=== PATIENT | female | born 1955 | race Caucasian/White ===

== ENCOUNTER 2017-01-25 14:10 | Emergency (ER) ==
[2017-01-25 14:23] VITALS: BP 175/96
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
--- NOTE | 2017-01-25 17:58 | Diag Imaging Result Document ---
PROCEDURE NAME: RIBS UNILAT W/PA CHEST LEFT - 01/25/2017 FRONTAL CHEST X-RAY AND 2 VIEWS OF THE LEFT-SIDED RIBS: COMPARISON: 12/14/2016. FINDINGS: Stable borderline heart size. The lungs are clear of infiltrate. No pneumothorax or pleural effusion. The left-sided ribs are intact. IMPRESSION: No acute disease or change from prior. Job#:
== END 2017-01-25 16:36 | disposition home or self-care (01) ==
LOC: ED 14:10
DX: R07.81 Pleurodynia (principal); S01.511A Laceration without foreign body of lip, initial encounter; R07.9 Chest pain, unspecified; I10 Essential (primary) hypertension; Y08.89XA Assault by other specified means, initial encounter; Z79.899 Other long term (current) drug therapy
CPT/HCPCS: 71101

== ENCOUNTER 2020-01-01 15:08 | Observation (INO) ==
[2020-01-01 15:58] LABS: BASO# 0.03 X1000 (0.0-0.2); BASO% 0.1 % (0.0-0.8); EOS% 0.5 % (0.0-10.0); HEMATOCRIT 39.4 % (37.0-47.0); HEMOGLOBIN 12.3 g/dL (12.0-16.0); IMM GRAN# 0.05 X1000 (0.0-0.04); IMM GRAN% 0.2 % (0.0-0.5); LYMPH# 1.98 X1000 (1.2-3.4); LYMPH% 9.4 % (20.5-51.1); MCH 27.4 PG (27-31); MCHC 31.2 g/dL (33-37); MCV 87.8 FL (81-99); MONO# 1.01 X1000 (0.11-0.59); MONO% 4.8 % (1.7-9.3); MPV 9.8 FL (7.4-10.4); NEUT# 17.99 X1000 (1.4-6.5); PLT 215 X1000 (130-400); RBC 4.49 XMIL (4.2-5.4); RDW 15.9 % (11.5-14.5); WBC 21.16 X1000 (4.8-10.8)
[2020-01-01 16:05] LABS: INR 1.11; PROTIME 14.4 Seconds (11.0-16.0)
[2020-01-01 16:14] LABS: ALB/GLOB RATIO 1.4; ALBUMIN 4.1 g/dL (3.5-5.0); POTASSIUM 3.4 mmol/L (3.5-5.1); TOTAL BILIRUBIN 0.69 mg/dL (0.20-1.00)
--- NOTE | 2020-01-01 16:19 | PROVIDER DOCUMENTATION ---
HPI-General Adult - General Chief Complaint: Shortness of Breath Stated Complaint: SOB Time Seen by Provider: 01/01/20 16:18 Source: patient Allergies/Adverse Reactions: Patient Allergies Allergy/AdvReac Type Severity Reaction Status Date / Time No Known Allergies Allergy Verified 04/18/17 13:27 Home Medications: Home Medication List Medication Instructions Recorded Confirmed Last Taken Type Alprazolam [Xanax] 1 mg PO TID PRN PRN 01/20/16 01/01/20 01/01/20 11:00 History Zolpidem [Ambien] 10 mg PO HS 01/20/16 01/01/20 1 Day Ago History ~07/11/19 10mg Gabapentin 800 mg PO TID 01/25/17 01/01/20 01/01/20 11:00 History Lisinopril 20 mg PO DAILY 04/18/17 01/01/20 01/01/20 11:00 History Ondansetron [Zofran] 4 mg PO Q6H PRN PRN #20 tablet 04/18/17 01/01/20 1 Day Ago Rx ~07/11/19 4mg - History of Present Illness -Gen Adult Nature of Presenting Problems: 64 year old female pmh significant for wheezing over the past week that has been progressively worsening and is a/w FOLEY and orthopnea, but no diaphoresis, nausea, vomiting, or lightheadedness. Review of Systems - Adult - REVIEW OF SYSTEMS - ADULT Constitutional: reports: reshma. denies: chills, fever Eyes: denies: decreased vision, blurred vision, double vision Ears, Nose, Mouth & Throat: reports: no symptoms reported Cardiovascular: reports: orthopnea, PND Respiratory: reports: cough, dyspnea on exertion, shortness of breath, wheezing Gastrointestinal: reports: no symptoms reported Genitourinary: reports: no symptoms reported Musculoskeletal: reports: no symptoms reported Integumentary: reports: no symptoms reported Neurological: reports: no symptoms reported Psychiatric: reports: no symptoms reported Endocrine: reports: no symptoms reported Hematologic/Lymphatic: reports: no symptoms reported Allergic/Immunologic: reports: no symptoms reported All Other Systems: Reviewed and Negative Past History - Adult - PAST MEDICAL HISTORY-ADULT Review of Records: reports: Old Records Reviewed, Nursing Assessment Review, Medications Reviewed, Social history reviewed & non-contributory. Cardiovascular: reports: HTN Psychiatric: reports: anxiety - PRIOR SURGERIES/PROCEDURES Surgical/Procedure History: reports: cholecystectomy - IMMUNIZATION STATUS Childhood Immunizations: See Nurse Assessment Flu Vaccine: See Nurse Assessment - FAMILY HISTORY Family History: reviewed, not pertinent - SOCIAL HISTORY Smoking: quit greater than 1 year Substance Use: none/never Alcohol Use Frequency: never Physical Exam-General - PHYSICAL EXAM-ADULT Initial Vital Signs Reviewed: Yes (hypoxemia) - CONSTITUTIONAL General Appearance: appears well, alert - EYES Eyes: PERRL/EOMI - HEAD, EARS, NOSE, MOUTH & THROAT HENMT: normocephalic/atraumatic, TMs normal. negative: moist mucous membranes (Dry MM) - NECK Neck: non-tender, full range of motion, supple, normal inspection - RESPIRATORY Respiratory: wheezing (diffuse, expiratory), dull on percussion, prolonged expiration - CARDIOVASCULAR Cardiovascular: normal peripheral pulses, regular rate, rhythm, no JVD, no murmur. negative: no edema (non-pitting lower extremity edema) - GASTROINTESTINAL (ABDOMEN) Abdominal Exam: normal bowel sounds, non tender, soft - MUSCULOSKELETAL Back Exam: normal inspection Extremity: normal range of motion, normal gait, pedal edema (b/l non-pitting) Peripheral Pulses: radial (R): 2+, radial (L): 2+ - SKIN Integumentary: normal color, warm/dry. negative: normal turgor (poor turgor) - NEUROLOGIC Neurologic: grossly normal, no motor/sensory deficits - PSYCHIATRIC Psych/Mental Status: normal mood/affect, normal thought content, normal thought process, oriented x 3 Progress - PLAN OF CARE/RESULTS Progress/Plan/Lab Results: Vital Signs - 8 hr 01/01/20 15:47 Temperature 98.7 F Pulse Rate 92 H Respiratory Rate 18 Blood Pressure 99/64 O2 Sat by Pulse Oximetry 91 L Laboratory Results - last 24 hr 01/01/20 01/01/20 01/01/20 15:31 15:31 15:31 WBC 21.16 H RBC 4.49 Hgb 12.3 Hct 39.4 MCV 87.8 MCH 27.4 MCHC 31.2 L RDW Std Deviation 15.9 H Plt Count 215 MPV 9.8 Immature Gran % (Auto) 0.2 Neut % (Auto) 85.0 H Lymph % (Auto) 9.4 L [place] % (Auto) 4.8 Eos % (Auto) 0.5 Baso % (Auto) 0.1 Immature Gran # (Auto) 0.05 H Neut # (Auto) 17.99 H Lymph # (Auto) 1.98 [place] # (Auto) 1.01 H Eos # (Auto) 0.10 Baso # (Auto) 0.03 PT 14.4 INR 1.11 PTT (Actin FS) Sodium 144 Potassium 3.4 L Chloride 107 Carbon Dioxide 24 L Anion Gap 13 BUN 13 Creatinine 1.0 H Estimated GFR/1.73 m2 55 BUN/Creatinine Ratio 13 Glucose 96 Calculated Osmolality 287 Calcium 9.0 Total Bilirubin 0.69 AST 15 ALT 23 Alkaline Phosphatase 100 Creatine Kinase 41 Total Protein 7.0 Albumin 4.1 Globulin 2.9 Albumin/Globulin Ratio 1.4 01/01/20 15:31 WBC RBC Hgb Hct MCV MCH MCHC RDW Std Deviation Plt Count MPV Immature Gran % (Auto) Neut % (Auto) Lymph % (Auto) [place] % (Auto) Eos % (Auto) Baso % (Auto) Immature Gran # (Auto) Neut # (Auto) Lymph # (Auto) [place] # (Auto) Eos # (Auto) Baso # (Auto) PT INR PTT (Actin FS) 33.5 Sodium Potassium Chloride Carbon Dioxide Anion Gap BUN Creatinine Estimated GFR/1.73 m2 BUN/Creatinine Ratio Glucose Calculated Osmolality Calcium Total Bilirubin AST ALT Alkaline Phosphatase Creatine Kinase Total Protein Albumin Globulin Albumin/Globulin Ratio Orders Category Date Time Status Saline Loc NOW Care 01/01/20 15:38 Active CHEST-2 VIEWS [RAD] Stat Exams 01/01/20 15:38 Taken CBC WITH ELECTRONIC DIFF [HEME] Stat Lab 01/01/20 15:31 Completed CK PROFILE [SP CHEM] Stat Lab 01/01/20 15:31 Completed COMPREHENSIVE METABOLIC PANEL [CHEM] Stat Lab 01/01/20 15:31 Completed PRO B-NATRIURETIC PEPTIDE Stat Lab 01/01/20 15:31 Received PROTIME WITH INR [COAG] Stat Lab 01/01/20 15:31 Completed PTT [COAG] Stat Lab 01/01/20 15:31 Completed TROPONIN T HIGH SENSITIVITY Stat Lab 01/01/20 15:31 Received URINALYSIS W/POSS RFLX CULT [URINALYSIS] Stat Lab 01/01/20 15:38 Uncollected EKG [EKG] Stat Ther 01/01/20 15:38 Ordered I informed the patient and her family of the lab and radiology findings and that she would be admitted to the hospital for inpatient treatment of left lower lobe PNA. The patient and family verbalized understanding and agreement with the plan. Result Diagrams: 01/01/20 15:31 01/01/20 15:31 - EKG 1 Time of EKG reading by physician:: 15:44 EKG Read and Signed by:: Billy Aldana EKG Interpretation (*Must complete 3 of following elements*): Abnormal (LVH with secondary repolarization abnormality) Rate: 96 Rhythm: sinus [place]: left QRS: poor R wave progression LA Interval: normal ST Wave: non-specific ST changes (leads I, II and AvL) Comments: No STEMI, NSTEMI, or acute ischemic process. Non-specific T wave changes - XRAY 1 XRAY Study: Chest Impression: Abnormal (EXAM: CHEST-2 VIEWS INDICATION: SOB TECHNIQUE: 2 views COMPARISON: 07/19/2019 FINDINGS: Inspiration is suboptimal. There is vague increased opacity at the left lung base suggesting atelectasis and/or infiltrate. There is mild stable linear scarring at the right midlung zone. There is no discrete pleural fluid collection or pneumothorax. The cardiomediastinal silhouette and central vasculature are grossly unremarkable. IMPRESSION: Vague opacity at the left lower lung zone suggesting atelectasis versus mild infiltrate. Electronically signed by Crow Freeman 01/01/2020 4:52 PM 01/01/201651 Interpreting Physician: Crow Freeman MD Dictated Date/Time: 01/01/201650 cc: Nelson Danielson; None,PCP) - CONSULTS/PCP/HOSPITALIST Notification #1 *Consult/PCP/Hospitalist*: Dr. Cisse Time Discussed: 18:07 (Sepsis, LLL PNA) Reason/Comments: s/w KEESHA Corley, patient will be admitted under care of Dr. Cisse Consult Disposition: Will see in ED, Admit Departure - Departure Date of Disposition Decision: 01/01/20 Time of Disposition Decision: 18:08 (Admit inpatient) DIAGNOSIS: Hypokalemia, Neutrophilic leukocytosis, Hypoxemia, Left lower lobe consolidation Sepsis Qualifiers: Sepsis type: sepsis due to unspecified organism Acute respiratory failure type: with hypoxia Disposition: ADMITTED INPATIENT 09 Certified Medical Emergency: Emergent Condition: Fair Referrals and Follow-Ups: None,PCP [Primary Care Provider] - - Critical Care Note This patient required my direct & personal management of CC.: No Attestation - Physician/ TYRESE Attestation Patient care was provided by Advanced Practice Provider:: No The physician spent face to face time with patient:: Yes Advanced Practice Provider documentation review:: Supervising physician onsite and consulted in the evaluation and care of this patient. The physician did have a face to face encounter with the patient.
[2020-01-01] MEDS ORDERED: ZITHROMAX 500 MG/NS 500 MG/250 ML IVPB IV ONE (16:21)
[2020-01-01] MEDS ORDERED: ROCEPHIN 1 GM in NS 50 ML IV ONE (16:21)
--- NOTE | 2020-01-01 16:22 | EKG Report ---
Test Performed on : 01/01/2020 3:19:19 PM Test Reason : CP Blood Pressure : / mmHG Vent. Rate : 096 BPM Atrial Rate : 096 BPM P-R Int : 148 ms QRS Dur : 070 ms QT Int : 354 ms P-R-T Axes : 027 -20 057 degrees QTc Int : 447 ms Normal sinus rhythm. Left ventricular hypertrophy with repolarization abnormality Possible Lateral infarct (cited on or before 20-JAN-2016) Abnormal ECG When compared with ECG of 04-JUL-2016 06:30, Questionable change in initial forces of Lateral leads ST now depressed in Lateral leads Unconfirmed Result
[2020-01-01] MEDS ORDERED: NS 1,000 ML IV ONE (16:44)
[2020-01-01] MEDS ORDERED: SOLU-MEDROL 125 MG in NS 100 ML IV ONE (16:46)
[2020-01-01] MEDS ORDERED: DUONEB (A & A) INH ONE (16:46)
--- NOTE | 2020-01-01 16:55 | Diag Imaging Result Doc PS360 ---
EXAM: CHEST-2 VIEWS INDICATION: SOB TECHNIQUE: 2 views COMPARISON: 07/19/2019 FINDINGS: Inspiration is suboptimal. There is vague increased opacity at the left lung base suggesting atelectasis and/or infiltrate. There is mild stable linear scarring at the right midlung zone. There is no discrete pleural fluid collection or pneumothorax. The cardiomediastinal silhouette and central vasculature are grossly unremarkable. IMPRESSION: Vague opacity at the left lower lung zone suggesting atelectasis versus mild infiltrate. Electronically signed by Crow Freeman 01/01/2020 4:52 PM
[2020-01-01] MEDS ORDERED: KLOR-CON PO ONE (17:36)
[2020-01-01 18:06] LABS: ALLEN TEST YES; BE -0.9 mmoll (-3.0-3.0); BLOOD TYPE ARTERIAL; HCO3-(ACT) 24.2 mmoll (20.0-26.0); METHB 1.1 % (0.0-1.5); O2(CT) 20.3 mL/dL (15.0-23.0); O2HB 95.5 % (95.0-99.0); PCO2(98.6) 41 mmHg (35-45); PO2(98.6) 91 mmHg (60-100); SAMPLE BLOOD; SAO2 98.3 % (95.0-100.0); THB 15.1 g/dL (11.5-17.4); pH(98.6) 7.38 (7.35-7.45)
[2020-01-01 18:09] LABS: MODALITY CANNULA
[2020-01-01] MEDS ORDERED: SOLU-MEDROL IV ONE (18:59)
[2020-01-01 20:58] LABS: URINE SOURCE CLEAN CATCH
[2020-01-01 21:13] LABS: BILIRUBIN URINE NEGATIVE (NEGATIVE); BLOOD URINE NEGATIVE (NEGATIVE); COLOR YELLOW; GLUCOSE URINE NEGATIVE (NEGATIVE); KETONE URINE NEGATIVE (NEGATIVE); LEUKOCYTES URINE MODERATE (NEGATIVE); NITRITE URINE NEGATIVE (NEGATIVE); PROTEIN URINE TRACE mg/dL (NEGATIVE); SP GRAVITY URINE 1.021; TURBIDITY URINE CLEAR (CLEAR); UROBILINOGEN URINE NORMAL (NORMAL)
[2020-01-01 21:16] LABS: UR EPITHELIAL CELLS <10 /HPF (<10); URINE BACTERIA NEGATIVE /HPF; URINE RBC <10 /HPF (<10)
[2020-01-01] MEDS ORDERED: DUONEB (A & A) INH PRN (21:18)
[2020-01-01] MEDS ORDERED: TYLENOL PO PRN (21:18)
[2020-01-01] MEDS ORDERED: PRILOSEC PO ONE (21:18)
[2020-01-01] MEDS ORDERED: NS 1,000 ML IV SCH (21:18)
--- NOTE | 2020-01-01 22:03 | HISTORY AND PHYSICAL ---
PRIMARY CARE PROVIDER: Dr. Med Barnes. CHIEF COMPLAINT: Wheezing. HISTORY OF PRESENT ILLNESS: Ms. Aguirre is a 64-year-old female with a past medical history of anxiety, depression, hypertension, chronic left leg pain, and pneumonia 2 to 3 times over the past few years, who came to the ED today complaining of wheezing over the past week, as well as shortness of breath and productive cough with yellowish sputum and a headache. She reports no appetite for over the past few months. She has had some diarrhea for the past few days, about 3 episodes per day. She is unsure if she has had any fever or chills. She states she is always cold. She denies any dysuria or frequency. No chest pain. No palpitations. No dizziness. No nausea or vomiting. Workup in the ED revealed a white count of 21, a potassium of 3.4. Chest x-ray showed a vague opacity in the left lower lung zone, suggesting atelectasis versus a mild infiltrate. She was mildly hypoxemic on room air at 91%. She was afebrile and was not tachycardic. Currently pending blood cultures, urinalysis, and lactate. Oxygenation improved with 2 L nasal cannula. She will be admitted to the floor and continued on intravenous antibiotics and aggressive pulmonary toilet and bronchodilators. PAST MEDICAL HISTORY: 1. Anxiety. 2. Depression. 3. Hypertension. 4. Left leg pain. 5. Pneumonia. PAST SURGICAL HISTORY: 1. Cholecystectomy. 2. Tubal. 3. Appendectomy. SOCIAL HISTORY: Retired. No tobacco, alcohol or illicit drug use. Family at bedside. FAMILY HISTORY: Reviewed and noncontributory. ALLERGIES: No known drug allergies. HOME MEDICATIONS: 1. Xanax. 2. Gabapentin. 3. Lisinopril. 4. Zofran. 5. Ambien. PHYSICAL EXAMINATION: GENERAL: Ms. Aguirre is a 64-year-old female who is lying on the stretcher in no acute distress. HEENT: Atraumatic, normocephalic. PERRL. NECK: Supple. Trachea midline. CV: S1, S2 appreciated. No murmurs, gallops, rubs noted. RESPIRATORY: Lung sounds somewhat decreased. Entryway relatively clear, but no rales, rhonchi, or wheezes. GI: Soft, nontender, nondistended. Positive bowel sounds 4 quadrants. EXTREMITIES: Lower extremities I did not assess. She had on knee-high boots. NEUROLOGIC: Alert and oriented x4. Moves all extremities. DIAGNOSTIC DATA: Chest x-ray: Left lower lung zone atelectasis versus mild infiltrates. LABORATORY DATA: White count 21, hemoglobin and hematocrit 12 and 39, platelet count is 215,000. Sodium 144, potassium 3.4, BUN 13, creatinine 1.0, blood glucose is 96, magnesium 2.2. Troponin less than 6. ASSESSMENT AND PLAN: 1. Left lower lung pneumonia. Continue with intravenous antibiotics, supplemental oxygen, aggressive pulmonary toilet, bronchodilators, intravenous fluids. Currently pending blood cultures and lactate. 2. Hypokalemia. Patient was given p.o. supplementation. We will recheck in the morning. 3. Hypertension. Will continue home medications. 4. Anxiety and depression and insomnia. Continue home medications. 5. Chronic pain syndrome. Continue gabapentin. 6. Further recommendation to follow physician evaluation, laboratory and diagnostic data. Dictated by SONAL Riggs for Sigifredo Cisse MD cc: Sigifredo Cisse MD I agree with most components of history, physical, assessment and plan. A separate addendum has been dictated. CLIFF
[2020-01-01] MEDS: XANAX PO PRN (22:41)
[2020-01-01] MEDS: AMBIEN PO SCH (22:41)
[2020-01-01] MEDS: DUONEB (A & A) INH SCH (23:04)
--- NOTE | 2020-01-01 23:51 | HISTORY AND PHYSICAL ---
ADDENDUM: I agree with most components of history assessment and plan. 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 The patient had symptoms throughout the day especially at nighttime which would wake her up. Most of the times her wheeze would follow cough and it did not improve so her daughter suggested to come to the hospital. In the emergency room she was found to be afebrile with temperature of 98.7 degrees, pulse 92, respiratory 18, blood pressure 99/64, she had a saturation of 91% on room air so the hospitalist team was consulted further management. She did have episodes of significant wheezing while she was in the emergency room for which she received intravenous steroids. At the time of my evaluation she is feeling slightly better. Her is at bedside. She denies known history of COPD, smoking or asthma. 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 PHYSICAL EXAMINATION: Vitals:Reviewed CV: S1, S2 appreciated. No murmurs, gallops, rubs noted. RESPIRATORY: Decreased airentry bilateral lung zuniga. Rales in left infrascapular region. GI: Soft, nontender, nondistended. Positive bowel sounds 4 quadrants. EXTREMITIES: No edema. Intact dorsalis pedis and posterior tibial pulses. Skin turgor and capillary refill time is normal. NEUROLOGIC: Alert and oriented x4. Moves all extremities. DIAGNOSTIC DATA: Chest x-ray: Left lower lung zone atelectasis ve LABS: Suggestive of WBC of 21,000, hemoglobin 12.3, platelet of 215,000, PO2 of 91, potassium of 3.4, BUN 13, creatinine 1. Microbiology no positive data. Influenza screen is pending. ASSESSMENT AND PLAN: 1. Acute hypoxic respiratory failure and sepsis due to left lower lobe pneumonia. Based on chest x-ray imaging this is likely community-acquired pneumonia. I will treat her with intravenous ceftriaxone and azithromycin. I will follow up with immunoglobulin levels considering her recurrent pneumonia, influenza screen and I will also order sputum culture if she is able to make one. I will keep her on inhaled bronchodilators. She received doses of intravenous methylprednisolone in the emergency room. 2. Others, anxiety, I will continue her home alprazolam and zolpidem at nighttime. 3. Suspected gastroesophageal reflux disease. Patient does have history of gastroesophageal reflux disease and her symptoms of wheezing gets worse on lying down and at nighttime. She may have acid reflux induced wheezing. She does not have known diagnosis of asthma. Continue proton pump inhibitor . DISPOSITION: Continue monitor patient inside the hospital. Plan of care discussed with her and her . Their questions have been satisfactorily answered. cc: Sigifredo Cisse MD MTDD
[2020-01-02] MEDS: DUONEB (A & A) INH SCH ×6 (05:35→19:44)
[2020-01-02] MEDS: PRILOSEC PO SCH (06:46)
--- NOTE | 2020-01-02 07:02 | Diag Imaging Result Doc PS360 ---
EXAM: CHEST-PORTABLE HISTORY: Pneumonia TECHNIQUE: Single view COMPARISON: 01/01/2020 FINDINGS: The lungs are well expanded. Decreased atelectasis or infiltrates in the left base. No pleural effusions identified. The heart remains mildly prominent. No consolidation. IMPRESSION: Mild interval improvement Electronically signed by Dariel Pemberton 01/02/2020 6:51 AM
[2020-01-02 09:00] LABS: BASO# 0.01 X1000 (0.0-0.2); BASO% 0.1 % (0.0-0.8); EOS# 0.01 X1000 (0.0-0.7); EOS% 0.1 % (0.0-10.0); HEMATOCRIT 35.2 % (37.0-47.0); HEMOGLOBIN 10.6 g/dL (12.0-16.0); IMM GRAN# 0.04 X1000 (0.0-0.04); IMM GRAN% 0.3 % (0.0-0.5); LYMPH# 0.89 X1000 (1.2-3.4); LYMPH% 6.1 % (20.5-51.1); MCHC 30.1 g/dL (33-37); MCV 89.6 FL (81-99); MONO# 0.08 X1000 (0.11-0.59); MONO% 0.6 % (1.7-9.3); MPV 9.8 FL (7.4-10.4); NEUT# 13.45 X1000 (1.4-6.5); NEUT% 92.8 % (42.2-75.2); PLT 200 X1000 (130-400); RBC 3.93 XMIL (4.2-5.4); RDW 15.7 % (11.5-14.5); WBC 14.48 X1000 (4.8-10.8)
[2020-01-02 09:19] LABS: BANDS 2 % (0-1); LYMPHS 2 % (21-51); SEGS 96 % (42-75)
[2020-01-02] MEDS: ZITHROMAX PO SCH (09:45)
[2020-01-02] MEDS: NEURONTIN PO SCH ×3 (09:45→21:02)
[2020-01-02] MEDS: PRINIVIL PO SCH (09:46)
[2020-01-02] MEDS: XANAX PO PRN ×2 (09:51→21:05)
[2020-01-02 09:56] LABS: AGAP 10; ALB/GLOB RATIO 1.1; ALBUMIN 3.4 g/dL (3.5-5.0); ALKALINE PHOSPHATASE 115 U/L (32-104); BUN 16 mg/dL (8-22); CHLORIDE 109 mmol/L (98-107); COSMO 293; CREATININE 0.8 mg/dL (0.5-0.9); ESTIMATED GFR > 60; GLUCOSE 186 mg/dL (70-104); GOT 11 U/L (10-30); GPT 20 U/L (10-36); POTASSIUM 4.1 mmol/L (3.5-5.1); SODIUM 144 mmol/L (136-145); TCO2 25 mmol/L (25-35); TOTAL BILIRUBIN 0.27 mg/dL (0.20-1.00); TOTAL PROTEIN 6.4 g/dL (6.3-8.3)
[2020-01-02] MEDS ORDERED: FIORICET PO PRN (12:31)
[2020-01-02] MEDS ORDERED: ROBITUSSIN-DM PO PRN (12:32)
[2020-01-02] MEDS: TESSALON PO SCH ×2 (15:11→21:02)
[2020-01-02] MEDS: NS 1,000 ML IV SCH (15:16)
[2020-01-02] MEDS ORDERED: ROCEPHIN 1 GM in NS 50 ML IV SCH (18:30)
--- NOTE | 2020-01-02 20:38 | PROGRESS NOTE ---
DATE: 01/02/2020 SUBJECTIVE: The patient states that she feels a little bit better today. She states that she is having occasional coughing spells. OBJECTIVE: Vital Signs: Temperature 97.8 degrees, blood pressure 147/76, heart rate 107, respirations 14, O2 saturation is 97% on room air. General: This is a chronically ill-appearing, elderly female, lying in bed in no acute distress. Heart: S1, S2 normal. Tachycardic. Lungs: Equal air entry bilaterally. No wheezing. No rales. Abdomen: Positive bowel sounds. Soft, nontender, nondistended. Extremities: No edema. No cyanosis. Neurologic: The patient is alert and oriented x3. LABORATORY AND DIAGNOSTIC DATA: White blood cell count 14, hemoglobin 10, hematocrit 35, platelets 200,000. Sodium 144, potassium 4.1, chloride 109, CO2 of 25, BUN 16, creatinine 0.8, glucose 186. Chest x-ray shows decreased infiltrates in the left base. ASSESSMENT AND PLAN: 1. Left lobe pneumonia. Continue on the current antibiotic regimen. 2. Anxiety disorder. Continue on Xanax. 3. Gastroesophageal reflux disease. Continue on omeprazole. 4. Hypertension. Continue on lisinopril. 5. Deep vein thrombosis prophylaxis. We will start the patient on Lovenox. cc: Nanette Conrad MD
[2020-01-02] MEDS ORDERED: LOVENOX SUBQ SCH (21:00)
[2020-01-02] MEDS: AMBIEN PO SCH (21:02)
[2020-01-03] MEDS: NS 1,000 ML IV SCH (04:21)
[2020-01-03] MEDS: DUONEB (A & A) INH SCH ×2 (05:37→07:34)
[2020-01-03] MEDS: PRILOSEC PO SCH (06:19)
[2020-01-03 07:39] LABS: HEMATOCRIT 31.5 % (37.0-47.0); HEMOGLOBIN 9.6 g/dL (12.0-16.0); MCH 27.8 PG (27-31); MCHC 30.5 g/dL (33-37); MCV 91.3 FL (81-99); MPV 9.7 FL (7.4-10.4); RBC 3.45 XMIL (4.2-5.4); RDW 16.6 % (11.5-14.5); WBC 13.08 X1000 (4.8-10.8)
[2020-01-03 08:04] VITALS: BP 127/65
[2020-01-03 08:12] LABS: AGAP 9; BUN 12 mg/dL (8-22); CALCIUM 8.8 mg/dL (8.8-10.2); CHLORIDE 110 mmol/L (98-107); COSMO 290; CREATININE 0.8 mg/dL (0.5-0.9); ESTIMATED GFR > 60; GLUCOSE 98 mg/dL (70-104); POTASSIUM 4.2 mmol/L (3.5-5.1); SODIUM 146 mmol/L (136-145); TCO2 27 mmol/L (25-35)
[2020-01-03] MEDS: NEURONTIN PO SCH (09:05)
[2020-01-03] MEDS: ZITHROMAX PO SCH (09:05)
[2020-01-03] MEDS: PRINIVIL PO SCH (09:05)
[2020-01-03] MEDS: TESSALON PO SCH (09:05)
--- NOTE | 2020-01-03 10:03 | Diag Imaging Result Doc PS360 ---
EXAM: CHEST-2 VIEWS 01/03/2020 HISTORY: pneumonia TECHNIQUE: PA and lateral chest COMMENT: There are surgical clips in the right axilla. There is minimal platelike opacity in the lingula. Otherwise are has been no significant change since 01/02/2020. IMPRESSION: Minimal lingular atelectasis. Electronically signed by Tigre Pichardo 01/03/2020 10:01 AM
--- NOTE | 2020-01-05 18:03 | DISCHARGE SUMMARY ---
ADMISSION DATE: 01/01/2020 DISCHARGE DATE: 01/03/2020 FINAL DISCHARGE DIAGNOSES: 1. Left lower lobe pneumonia. 2. Anxiety disorder. 3. Gastroesophageal reflux disease. 4. Hypertension. 5. Neuropathy. HOSPITAL COURSE: Ms Aguirre is a 64-year-old female with a history of anxiety disorder who presented to the ER with a chief complaint of wheezing and shortness of breath. On admission a chest x-ray was done that revealed a left lower lobe pneumonia. The patient was admitted to the hospitalist service. Blood cultures were obtained and the patient was started on broad-spectrum antibiotics. An influenza swab was done that was noted to be negative. IV fluids were also initiated as well as bronchodilator therapy and incentive spirometry. Slowly over the course of the hospitalization the patient's respiratory status improved. She did not require supplemental oxygen. She stated that she felt a lot better after receiving IV antibiotics and fluids. The chest x-ray done on the day of discharge showed no infiltrates but did reveal some atelectasis in the lingular region. The patient was ultimately cleared for discharge home on 01/03/2020. DISCHARGE MEDICATIONS: 1. Augmentin 875/125 one tab oral twice a day for 7 days. 2. Probiotic 1 tab oral twice a day. 3. Robitussin 10 mL oral every 4 hours p.r.n. for cough. 4. Xanax 1 mg oral 3 times a day p.r.n. for anxiety. 5. Ambien 10 mg oral at bedtime. 6. Gabapentin 800 mg oral 3 times a day. 7. Lisinopril 20 mg oral daily. 8. Zofran 4 mg oral every 6 hours p.r.n. for nausea. DISCHARGE DIET: Low-sodium diet. ACTIVITY: As tolerated. FOLLOWUP INSTRUCTIONS: The patient will need to follow up with Dr. Barnes in 1 week for repeat chest x-ray to check for resolution. cc: Nanette Conrad MD
== END 2020-01-03 13:02 | disposition home or self-care (01) ==
LOC: ED 15:08 → SUATTDRO 20:16 → INTOOBSV 20:16 → 3N 20:16
PROVIDERS: ATTEND Internal Medicine